=== PATIENT | female | born 1990 | race Two or more races ===

== ENCOUNTER 2017-07-04 21:18 | Inpatient (IN) | payer OTHER ==
[~2017-07-04] VITALS: Ht 170.2 cm; Wt 83.0 kg
[2017-07-04 21:30] VITALS: BP 121/78
[2017-07-04 22:12] LABS: MEAN CORPUSCULAR HEMOGLOBIN 32.1 pg (27.0-33.0); MEAN CORPUSCULAR HGB CONC 35.4 g/dl (32.0-36.5); MEAN CORPUSCULAR VOLUME 90.9 fl (80.0-96.0); RED CELL DISTRIBUTION WIDTH 13.2 % (11.5-14.5); WHITE BLOOD COUNT 14.1 K/mm3 (4.0-10.0)
[2017-07-04] MEDS ORDERED: PRENTAB9 PO (22:12)
[2017-07-04] MEDS ORDERED: TUMS500C PO (22:12)
[2017-07-04] MEDS ORDERED: PENICILLIN G POTASSIUM IV 5 MU in D5W MINI-BAG PLUS 100 ML IV STA (22:45)
[2017-07-04] MEDS: miSOPROStol 50 MCG 1/2 TAB (S0191) PO SCH (22:55)
[2017-07-04 22:58] VITALS: BP 112/57
[2017-07-05] VITALS (34 sets, daily range): BP systolic 87–130; BP diastolic 49–71
[2017-07-05] MEDS ORDERED: PENICILLIN G POTASSIUM IV 2.5 MU in D5W 100 ML IV SCH (02:45)
[2017-07-05] MEDS: miSOPROStol 50 MCG 1/2 TAB (S0191) PO SCH ×2 (02:58→07:00)
[2017-07-05] MEDS ORDERED: PENICILLIN G POTASSIUM IV 5 MU in D5W MINI-BAG PLUS 100 ML IV STA (05:22)
[2017-07-05] MEDS ORDERED: FENTANYL 2MCG/ML ROPIVACAINE 0.2% IN 0.9% NACL 200ML IVBAG As Ordered ONE (05:34)
[2017-07-05] MEDS ORDERED: OXYTOCIN 30 UNITS IN 0.9% NaCl 500ML IV BAG (J2590) As Ordered ONE (05:58)
[2017-07-05] MEDS ORDERED: EPIDURAL COMMENT XX SCH (08:00)
[2017-07-05] MEDS ORDERED: NALOXONE INJ 0.4 MG/1 ML VIAL (J2310) IV PRN (08:00)
[2017-07-05] MEDS ORDERED: ONDANSETRON 4MG/2ML VIAL (J2405) IV PRN (08:00)
[2017-07-05] MEDS ORDERED: EPIDURAL/PCA KEYS XX PRN (08:00)
[2017-07-05] MEDS ORDERED: FENTANYL/ROPIVACAINE/NACL BAG 200 ML EPIDURAL SCH (08:00)
[2017-07-05] MEDS ORDERED: LACTATED RINGER'S 1000 ML IV PRN (08:00)
[2017-07-05] MEDS ORDERED: REFRIGERATOR IV KEYS XX PRN (08:00)
[2017-07-05] MEDS ORDERED: diphenhydrAMINE INJ 50MG/ML VIAL (J1200) IV PRN (08:00)
[2017-07-05] MEDS ORDERED: ePHEDrine SULFATE 25 MG/5 ML(5MG/ML) SYRINGE IV PRN (08:00)
[2017-07-05] MEDS: PRENATAL VITAMINS CHEWABLE TABLET PO SCH (09:00)
[2017-07-05] MEDS: PENICILLIN G POTASSIUM IV 2.5 MU in D5W 100 ML IV SCH ×2 (09:05→13:08)
--- NOTE | 2017-07-05 09:07 | IPNPDOC ---
Text Note Date of Service The patient was seen on 07/05/17. NOTE SBAR from Dr Logan at ~0734. Chart reviewed. NST Cat 1, reg ctx's but somewhat spaced after epidural, getting good relief Cx /0, still needs second dose of PCN Plan on recheck in 1-2 hrs, sooner prn and likely AROM. Sessions VS,Melodie, I+O VS, Melodie I+O Laboratory Tests 07/04/17 22:02 Red Blood Count 3.72 L, Mean Corpuscular Volume 90.9, Mean Corpuscular Hemoglobin 32.1, Mean Corpuscular Hemoglobin Concent 35.4, Red Cell Distribution Width 13.2 Vital Signs Date Time Temp Pulse Resp B/P (MAP) Pulse Ox O2 Delivery O2 Flow Rate FiO2 07/05/17 08:19 83 16 109/64 (79) 07/05/17 03:00 98.3 SESSIONS,MARILU Aguirre MD Jul 05, 2017 09:07
--- NOTE | 2017-07-05 11:55 | IPNPDOC ---
Text Note Date of Service The patient was seen on 07/05/17. NOTE NST Cat 1 Cx C/C/+1/BBOW/vtx well applied Plan on AROM if needed after I finish a on another pt. Plan d/w RN and L&D nursing team. If SROM/delivery occurs while I am operating Dr Mariano will break scrub (assisting me in the OR) and delivery the baby. Sessions VS,Melodie, I+O VSMelodie I+O Laboratory Tests 07/04/17 22:02 Red Blood Count 3.72 L, Mean Corpuscular Volume 90.9, Mean Corpuscular Hemoglobin 32.1, Mean Corpuscular Hemoglobin Concent 35.4, Red Cell Distribution Width 13.2 Vital Signs Date Time Temp Pulse Resp B/P (MAP) Pulse Ox O2 Delivery O2 Flow Rate FiO2 07/05/17 10:04 72 16 115/64 (81) 07/05/17 09:35 98.9 SESSIONS,MARILU Aguirre MD Jul 05, 2017 11:55
[2017-07-05] MEDS ORDERED: OXYTOCIN DRIP 30 UNITS in APPROPRIATE DILUENT 1 EA IV SCH (13:31)
[2017-07-05] MEDS ORDERED: OXYTOCIN INJ 10 UNITS/ML VIAL (J2590) IV ONE (13:45)
[2017-07-05] MEDS ORDERED: IBUPROFEN 800 MG TAB PO PRN (13:45)
[2017-07-05] MEDS ORDERED: MOM 30ML SUSPENSION UDC PO PRN (13:45)
[2017-07-05] MEDS ORDERED: ACETAMINOPHEN 500 MG TAB PO PRN (13:45)
[2017-07-05] MEDS ORDERED: METHYLERGONOVINE MALEATE 0.2 MG TAB PO PRN (13:45)
[2017-07-05] MEDS ORDERED: ANUSOL HC CREAM 30GM TOP PRN (13:45)
[2017-07-05] MEDS ORDERED: RHOGAM 300 MCG (1500 IU) INJ (J2790) IM SCH (13:45)
[2017-07-05] MEDS ORDERED: MEASLES,MUMPS,RUBELLA VACCINE INJ (MMR-II) (90707) SC SCH (13:45)
[2017-07-05] MEDS ORDERED: DIBUCAINE 1% OINTMENT 30GM TOP PRN (13:45)
[2017-07-05] MEDS ORDERED: DOCUSATE SODIUM 100 MG CAP PO PRN (13:45)
[2017-07-06 06:01] VITALS: BP 124/59
[2017-07-06 07:19] LABS: MEAN CORPUSCULAR HEMOGLOBIN 32.4 pg (27.0-33.0); MEAN CORPUSCULAR HGB CONC 35.1 g/dl (32.0-36.5); MEAN CORPUSCULAR VOLUME 92.3 fl (80.0-96.0); RED CELL DISTRIBUTION WIDTH 13.1 % (11.5-14.5); WHITE BLOOD COUNT 11.9 K/mm3 (4.0-10.0)
--- NOTE | 2017-07-06 08:41 | DS.PDOC ---
Discharge Summary General Date of Admission Jul 04, 2017 at 21:18 Date of Discharge [id number] Discharge Summary PROCEDURES PERFORMED DURING STAY: spontaneous vaginal delivery ADMITTING DIAGNOSIS: 1. Induced for post-dates DISCHARGE DIAGNOSES: 1. Healthy female infant HOSPITAL COURSE: Admitted to labor and delivery. Uncomplicated labor course, see delivery note. DISCHARGE MEDICATIONS: Motrin, Tylenol, Colace, Lanolin Physical exam: see note from this morning LABORATORY DATA: Please see below. ACTIVITY: as tolerated. Nothing in vagina for 6 weeks. DIET: regular DISPOSITION:stable TIME SPENT ON DISCHARGE: Greater than 15 minutes. Sessions Vital Signs/I&Os Vital Signs Date Time Temp Pulse Resp B/P (MAP) Pulse Ox O2 Delivery O2 Flow Rate FiO2 07/06/17 06:01 97.7 73 16 124/59 (80) I&O- Last 24 Hours up to 6 AM 07/06/17 05:59 Output Total 1800 ml Balance -1800 ml Laboratory Data CBC/BMP Laboratory Tests 07/06/17 06:39 Red Blood Count 3.94 L, Mean Corpuscular Volume 92.3, Mean Corpuscular Hemoglobin 32.4, Mean Corpuscular Hemoglobin Concent 35.1, Red Cell Distribution Width 13.1 Discharge Medications Scheduled Multivitamins/ ( 27-0.8 mg) 1 Tab Tab, 1 TAB PO DAILY, (Reported ) Miscellaneous Medications Calcium Carbonate (Tums) 500 Mg Chw, 500 MG PO, (Reported) Allergies Coded Allergies: No Known Allergies (Unverified , 07/04/17) SESSIONSMARILU MD Jul 06, 2017 08:41
--- NOTE | 2017-07-06 09:01 | IPNPDOC ---
Text Note Date of Service The patient was seen on 07/06/17. NOTE PPD1 prog note States feeling well, no complaints. No heavy VB. Pain controlled. Voiding, ambulatory. Bonding well and breast feeding well. VSSAF CTAB RRR Ut at U-2, firm Ext no CCE a/p: Doing well. d/c this morning. To bonding if baby not released. Sessions Melodie PITTS, I+O Melodie ROUSE I+O Laboratory Tests 07/06/17 06:39 Red Blood Count 3.94 L, Mean Corpuscular Volume 92.3, Mean Corpuscular Hemoglobin 32.4, Mean Corpuscular Hemoglobin Concent 35.1, Red Cell Distribution Width 13.1 Vital Signs Date Time Temp Pulse Resp B/P (MAP) Pulse Ox O2 Delivery O2 Flow Rate FiO2 07/06/17 06:01 97.7 73 16 124/59 (80) I&O- Last 24 Hours up to 6 AM 07/06/17 06:00 Output Total 1800 ml Balance -1800 ml SESSIONS,MARILU Aguirre MD Jul 06, 2017 09:01
[2017-07-06] MEDS: PRENATAL VITAMINS CHEWABLE TABLET PO SCH (09:03)
[2017-07-06] MEDS ORDERED: COLA100C5 PO (09:46)
[2017-07-06] MEDS ORDERED: ACET50TA PO (09:46)
[2017-07-06] MEDS ORDERED: IBUP-1114 PO (09:46)
--- NOTE | 2017-07-07 21:03 | DN ---
DATE: 07/05/2017 This lady is a 26-year-old 2 admitted for induction of labor late term, had an epidural in place, delivered a live female , scores of 9 and 9 at 1 and 5 minutes, respectively. Cord around the neck once loose. Placenta delivered spontaneously thereafter. Three-vessel cord, membranes and tissues intact. 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 In summary, we have a late term gestation, had spontaneous vaginal delivery of live female . Uterus contracted well down on Pitocin. Examination of the anterior, posterior, and lateral jacob were intact. Sphincter was intact and mucosa was intact. The patient and baby tolerated procedure well.
== END 2017-07-06 14:00 | disposition home or self-care (01) | DRG 775 ==
LOC: M LDI 21:18 → M OBS 07-05 17:07
PROVIDERS: ADMIT Obstetrics & Gynecology; ATTEND Obstetrics & Gynecology
PROC: 3E0DXGC Introduction of Other Therapeutic Substance into Mouth and Pharynx, External Approach (ICD-10-PCS; 2017-07-04)
PROC: 10E0XZZ Delivery of Products of Conception, External Approach (ICD-10-PCS; principal; 2017-07-05)
DX: O69.82X0 Labor and delivery complicated by other cord entanglement, without compression, not applicable or unspecified (principal); Z37.0 Single live birth; O48.0 Post-term pregnancy; O99.820 Streptococcus B carrier state complicating pregnancy; Z3A.41 41 weeks gestation of pregnancy